=== PATIENT | female | born 1985 | race American Indian/Alaskan Native ===

== ENCOUNTER 2017-02-06 16:46 | Emergency (ER) | payer SELFPAY ==
--- NOTE | 2017-02-06 21:00 | Emergency Department Report ---
ED Female HPI - General Chief complaint: Urogenital-Female Stated complaint: RT BREAST PAIN Time Seen by Provider: 02/06/17 20:24 Source: patient Mode of arrival: Ambulatory Limitations: No Limitations - History of Present Illness Initial comments: 31-year-old female past medical history none presents with complaint of approximately 4 months of breast tenderness and occasional clear discharge from her nipples. Denies any fever or chills, denies any significant breast masses or significant changes in texture or color of skin on breasts or nipples. Denies purulent discharge. Denies being on control or any new medications including antipsychotic medications. Denies being currently , last menstrual period 02/03/17. Denies family history of breast cancer in any first-degree relatives to her knowledge. Patient is a smoker. States her breasts ache intermittently. MD Complaint: other Onset/Timin -: month(s) Are you Now?: No Last Menstrual Period: 02/03/17 EDC: 11/10/17 - Related Data Sexually active: Yes Allergies Allergy/AdvReac Type Severity Reaction Status Date / Time morphine Allergy Unknown Verified 02/06/17 19:40 ED Review of Systems ROS: Stated complaint: RT BREAST PAIN Other details as noted in HPI Constitutional: denies: chills, fever Eyes: denies: eye pain, eye discharge, vision change ENT: denies: ear pain, throat pain Respiratory: denies: cough, shortness of breath, wheezing Cardiovascular: denies: chest pain, palpitations Endocrine: no symptoms reported Gastrointestinal: denies: abdominal pain, nausea, diarrhea Genitourinary: denies: urgency, dysuria, discharge Musculoskeletal: denies: back pain, joint swelling, arthralgia Skin: as per HPI. denies: rash, lesions Neurological: denies: headache, weakness, paresthesias Psychiatric: denies: anxiety, depression Hematological/Lymphatic: denies: easy bleeding, easy bruising ED Past Medical Hx - Past Medical History Previous Medical History?: No - Surgical History Past Surgical History?: No - Social History Smoking Status: Light Tobacco Smoker Substance Use Type: Alcohol ED Physical Exam - General Limitations: No Limitations General appearance: alert, in no apparent distress - Head Head exam: Present: atraumatic, normocephalic - Eye Eye exam: Present: normal appearance, PERRL, EOMI - ENT ENT exam: Present: mucous membranes moist - Neck Neck exam: Present: normal inspection - Respiratory Respiratory exam: Present: normal lung sounds bilaterally. Absent: respiratory distress - Cardiovascular Cardiovascular Exam: Present: regular rate, normal rhythm, other (patient has no palpable breast mass no large breast masses bilaterally and no significant changes in skin or breast or nipple. Very small amount of clear nipple discharge on palpation of the nipples bilaterally. No mass in tail of breast no axillary masses bilaterally. No skin changes concerning for skin malignancy or changes of breast associated with breast cancer on inspection and palpation) . Absent: systolic murmur, diastolic murmur, rubs, gallop - GI/Abdominal GI/Abdominal exam: Present: soft, normal bowel sounds - Extremities Exam Extremities exam: Present: normal inspection - Back Exam Back exam: Present: normal inspection - Neurological Exam Neurological exam: Present: alert, oriented X3 - Psychiatric Psychiatric exam: Present: normal affect, normal mood - Skin Skin exam: Present: warm, dry, intact, normal color. Absent: rash ED Course Vital Signs 02/06/17 19:31 Temperature 98.6 F Pulse Rate 81 Respiratory 16 Rate Blood Pressure 121/76 O2 Sat by Pulse 100 Oximetry ED Medical Decision Making - Medical Decision Making A/P: 4 months of chronic bilateral breast pain and clear fluid discharge from breasts 1-patient is not currently , urinalysis negative 2-there are no palpable breast masses other than one small freely mobile nontender cystic mass below right breast in quadrant #3, approximately 1 cm in size and is soft to palpation 3-I will give patient follow-up with [facility] breast [facility] primary care and Dr. Mcgraw to have outpatient mammogram and ultrasound done, there are no changes on breast indicative of infection mastitis or cellulitis at this time and this has been ongoing for approximately 4 months. Patient has no family history of breast cancer Critical care attestation.: If time is entered above; I have spent that time in minutes in the direct care of this critically ill patient, excluding procedure time. ED Disposition Clinical Impression: Nipple discharge Disposition: - TO HOME OR SELFCARE Is pt being admited?: No Does the pt Need Aspirin: No Condition: Stable Instructions: Breast Self-exam (ED), Mammogram (ED) Referrals: TOM FLETCHER MD [Staff Physician] - 3-5 Days IMELDA MCGRAW MD [Staff Physician] - 3-5 Days [facility] [Provider Group] - 3-5 Days [facility] [Provider Group] - 3-5 Days Time of Disposition: 21:56
[2017-02-06 21:27] LABS: Bilirubin,Urine NEG (Negative); Blood,Urine MOD (Negative); Ketones,Urine NEG (Negative); Leukocyte Esterase,Urine NEG (Negative); Mucus,Urine 3+ /HPF; Nitrite,Urine NEG (Negative); Protein,Urine <15 mg/dL mg/dL (Negative); Urobilinogen,Urine < 2.0 mg/dL (<2.0)
[2017-02-06 21:56] VITALS: BP 120/80
== END 2017-02-06 22:03 | disposition home or self-care (01) ==
LOC: ED 16:46
DX: N64.52 Nipple discharge (principal); F17.200 Nicotine dependence, unspecified, uncomplicated; Z88.6 Allergy status to analgesic agent
CPT/HCPCS: 81001; 81025; 99283